=== PATIENT | male | born 1995 | race African-American/Black ===

== ENCOUNTER 2024-06-30 22:23 | Emergency (ER) | payer SELFPAY ==
[2024-06-30 22:42] VITALS: BP 122/89; PULSE 53; RESP 16; TEMP 36.7; O2SAT 99; BMI 30.5
[2024-06-30 22:49] VITALS: PULSE 61; O2SAT 98
[2024-06-30 23:00] VITALS: PULSE 58; O2SAT 97
--- NOTE | 2024-06-30 23:14 | CRLHL7_ITS ---
For Patients: As a result of the Cures Act, medical imaging exams and procedure reports are released immediately into your electronic medical record. You may view this report before your referring provider. If you have questions, please contact your health care provider. INDICATION: Chest pain TECHNIQUE: Chest radiograph 2 views COMPARISON: None FINDINGS: Mediastinum: The mediastinum is normal in appearance. The heart silhouette is normal in size and morphology. Lung: Both lungs are unremarkable in appearance. No sign of pleural effusion seen. No pneumothorax is identified. Bone and Soft tissue: Unremarkable for age. IMPRESSION: 1. No acute cardiopulmonary disease is seen. Dictated by: Isac Yarbrough MD @ 06/30/2024 23:37:37 (Electronically Signed)
[2024-06-30 23:15] VITALS: PULSE 70; O2SAT 97
--- NOTE | 2024-06-30 23:15 | ED.CHESTPAIN ---
HPI - Chest Pain General Date Seen: 06/30/24 Chief Complaint: Chest Pain Stated Complaint: stomach pain Time Seen by Provider: 06/30/24 22:31 Source: patient Mode of arrival: ambulatory Limitations: no limitations History of Present Illness HPI narrative: Patient is a 29-year-old male presenting to the emergency department for chest pain. He states chest pain started about an hour ago in his left lower chest. It is a sharp pain that occurs sun the was talking to his girlfriend on the phone. States he is very stressed out at this time. Pain radiated to his left arm and left jaw. Laying on his stomach made the pain worse or when he took a deep breath and got so severe he came in to be evaluated. By time I spoke to the patient he states the pain resolved about 10 minutes early any is currently symptom free. Denies any history of heart disease. No family history of heart disease that he is aware of. Has no history of blood clots. Denies any recent surgeries, history of malignancy, hemoptysis, lower extremity swelling. Denies ever having symptoms like this before. No other concerns noted. Related Data Home Medications ?Medication ?Instructions ?Recorded ?Confirmed No Known Home Medications 06/30/24 06/30/24 Allergies Allergy/AdvReac Type Severity Reaction Status Date / Time No Known Drug Allergies Allergy Verified 06/30/24 22:46 Review of Systems Status of ROS Reports: 10 or more systems reviewed and unremarkable except as noted in History and below [facility] Social History Smoking Status: Current every day smoker What tobacco products do you use: cigarettes Smoking packs per day: 1 Smoking cigarettes per day: 20.0 Years smoked: 10 Smoking pack-years: 10.00 Do you use any of these nicotine containing products: None Second hand tobacco smoke exposure: No How often do you have a drink containing alcohol: monthly or less AUDIT-C Alcohol total score: 1 Non-prescribed substance use: marijuana (any form) service: No Exam Narrative Exam Narrative: Const: Well-nourished, Well-developed, in no distress Eyes: PERRL, no conjunctival injection, and symmetrical lids HENT: Atraumatic external nose and ears. Moist mucous membranes. Neck: Symmetric, trachea midline, No thyromegaly. CVS: RRR, No murmurs or gallops. Peripheral pulses 2+ and equal in all extremities RESP: Unlabored respiratory effort. Clear to auscultation bilaterally. GI: Nontender/Nondistended, No rebound or guarding. MSK:Extremities w/o deformity, Normal Active ROM Skin: Warm, Dry. No rashes or lesions. Neuro: Normal Muscle tone, No focal neurological deficits. Psych: Awake, Alert, & Oriented x3. Appropriate mood and affect. Const Vital Signs, click to edit/add: Vital Signs - 24 hr 06/30/24 22:42 Temperature 98.1 F Pulse Rate [Pulse Oximeter] 53 L Respiratory Rate 16 Blood Pressure [Right Upper Arm] 122/89 Pulse Oximetry 99 Oxygen Delivery Method Room Air Course Vital Signs Vital signs: Initial Vital Signs Temperature 98.1 F 06/30/24 22:42 Temperature Source Temporal Artery Scan 06/30/24 22:42 Pulse Rate 53 L 06/30/24 22:42 Respiratory Rate 16 06/30/24 22:42 Blood Pressure 122/89 06/30/24 22:42 Blood Pressure Mean 100 06/30/24 22:42 Blood Pressure Position Supine 06/30/24 22:42 Pulse Oximetry 99 06/30/24 22:42 Oxygen Delivery Method Room Air 06/30/24 22:42 Vital Signs Temperature 98.1 F 06/30/24 22:42 Pulse Rate 53 L 06/30/24 22:42 Respiratory Rate 16 06/30/24 22:42 Blood Pressure 122/89 06/30/24 22:42 Pulse Oximetry 99 06/30/24 22:42 Oxygen Delivery Method Room Air 06/30/24 22:42 Temperature 98.1 F 06/30/24 22:42 Pulse Rate 64 07/01/24 01:39 Respiratory Rate 16 07/01/24 01:39 Blood Pressure 123/64 07/01/24 01:39 Pulse Oximetry 99 07/01/24 01:00 Oxygen Delivery Method Room Air 07/01/24 01:00 MDM - Chest Pain MDM Narrative Medical decision making narrative: Patient is a 29-year-old male presenting to emergency department for chest pain. The differential diagnosis of chest pain is broad and includes common etiologies such as musculoskeletal strain, GERD, pneumonia, etc. More serious etiologies considered include PE, coronary artery disease, pneumothorax, aortic dissection, aortic aneurysm. PERC score at this time is 0 and PE can be ruled out. Patient is stable an aortic dissection and aortic aneurysm seems unlikely. Will do chest x-ray to look for signs of pneumonia or pneumothorax. Will do troponin an EKG for signs of coronary artery disease. Considering the symptoms were short lived could be a costochondritis or precordial catch syndrome. Also possible pleuritis. Chest x-ray reviewed by myself and the radiologist showed no acute concerning abnormalities. Patient signed out to my colleague pending second troponin. Expected disposition is discharge at this time. Lab Data Labs: Lab Results 06/30/24 06/30/24 07/01/24 Range/Units 23:14 23:40 01:15 WBC 5.54 (4.50-11.00) K/uL RBC 5.00 (4.30-5.90) m/uL Hgb 14.9 (13.5-17.5) gm/dL Hct 44.3 (37.0-53.0) % MCV 89 (80-100) fL MCH 30 (26-34) pg MCHC 34 (32-36) gm/dL RDW Coeff of Omar 12.4 (11.5-15.5) % Plt Count 184 (140-440) K/uL Neut % (Auto) 42.7 (42.0-72.0) % Lymph % (Auto) 48.9 H (20-44) % Nash % (Auto) 7.0 (0.0-11.0) % Eos % (Auto) 0.7 (0.0-7.0) % Baso % (Auto) 0.5 (0.0-3.0) % Neut # (Auto) 2.36 (1.7-7.0) K/uL Lymph # (Auto) 2.70 (0.90-2.90) K/uL Nash # (Auto) 0.40 (0.00-0.90) K/UL Eos # (Auto) 0.04 (0.00-0.50) K/uL Baso # (Auto) 0.03 (0.00-0.30) K/uL Abs Immat Gran (auto) 0.01 (0.00-0.30) K/uL Imm/Tot Granulo (auto) 0.2 % Sodium 136 (135-149) mmol/L Potassium 3.8 (3.6-5.1) mmol/L Chloride 104 (96-114) mmol/L Carbon Dioxide 24 (20-32) mmol/L Anion Gap 8 (7-15) mEq/L BUN 15 (5-24) mg/dL Creatinine 0.9 (0.5-1.5) mg/dL Estimated Creat Clear 113.23 Estimated GFR 119 ml/min Glucose 94 (60-115) mg/dL Calcium 8.9 (8.4-10.6) mg/dL POC Troponin I 0.01 0.00 L (0.01-0.04) ng/ml Imaging Data Chest x-ray: Attestation: I have reviewed the pertinent imaging results. Radiologist's impression: 1. No acute cardiopulmonary disease is seen. Dictated by: Isac Yarbrough MD @ 06/30/2024 23:37:37 ECG Data Attestation: I personally reviewed and interpreted this ECG as follows: Prior ECG tracings: not available for review Interpretation: Sinus bradycardia rate 54 beats per minute, normal intervals, normal axis, no ST or T-wave abnormalities. Discharge Plan Discharge Clinical Impression: Atypical chest pain Patient Disposition: Home, Self-Care Condition: Stable Instructions: Chest Wall Pain (ED) Additional Instructions: I cannot say for certain what he chest pain was but no abnormalities were seen on your exam or lab work. Follow-up with your primary care provider. Return to emergency department for new or worsening symptoms. Activity Level: No Restrictions Discharge Diet: Regular Prescriptions: No Action No Known Home Medications Stand Alone Forms: [employer] Info Instructions
[2024-06-30 23:30] VITALS: PULSE 57; O2SAT 97
[2024-06-30 23:45] VITALS: PULSE 58; O2SAT 96
[2024-06-30 23:52] LABS: Basophils Absolute Auto 0.03 K/uL (0.00-0.30); Basophils Percent Auto 0.5 % (0.0-3.0); Eosinophils Absolute Auto 0.04 K/uL (0.00-0.50); Eosinophils Percent Auto 0.7 % (0.0-7.0); Hematocrit 44.3 % (37.0-53.0); Hemoglobin* 14.9 gm/dL (13.5-17.5); Immature Granulocytes Abs Auto 0.01 K/uL (0.00-0.30); Immature Granulocytes Pct Auto 0.2 %; Lymphocytes Percent Auto 48.9 % (20-44); Mean Corpuscular HGB Conc 34 gm/dL (32-36); Mean Corpuscular Hemoglobin 30 pg (26-34); Mean Corpuscular Volume 89 fL (80-100); Neutrophils Absolute Auto 2.36 K/uL (1.7-7.0); Neutrophils Percent Auto 42.7 % (42.0-72.0); Platelet Count* 184 K/uL (140-440); RDW Coefficient of Variation % 12.4 % (11.5-15.5); White Blood Count* 5.54 K/uL (4.50-11.00)
[2024-06-30 23:56] LABS: Troponin, Point-of-Care* 0.01 ng/ml (0.01-0.04)
[2024-06-30 23:57] LABS: Slide Review Reflex No
[2024-07-01] VITALS: PULSE 62; O2SAT 95
[2024-07-01 00:01] LABS: Chloride* 104 mmol/L (96-114); Potassium* 3.8 mmol/L (3.6-5.1); Sodium* 136 mmol/L (135-149)
[2024-07-01 00:04] LABS: Anion Gap 8 mEq/L (7-15); Blood Urea Nitrogen* 15 mg/dL (5-24); Carbon Dioxide* 24 mmol/L (20-32); Creatinine* 0.9 mg/dL (0.5-1.5); Est. Creatinine Clearance* 113.23; Estimated Glomerular Filt Rate 119 ml/min; Glucose* 94 mg/dL (60-115)
[2024-07-01 00:05] LABS: Calcium* 8.9 mg/dL (8.4-10.6)
[2024-07-01 00:15] VITALS: PULSE 66; O2SAT 94
[2024-07-01 00:30] VITALS: PULSE 67; O2SAT 94
[2024-07-01 01:00] VITALS: BP 110/68; PULSE 58; RESP 14; O2SAT 99
[2024-07-01 01:39] VITALS: BP 123/64; PULSE 64; RESP 16
== END 2024-07-01 01:40 | disposition home or self-care (01) ==
LOC: ED 23:59
PROVIDERS: Emergency Provider Student in an Organized Health Care Education/Training Program
DX: R07.9 Chest pain, unspecified (principal)
CPT/HCPCS: 36415; 71046; 80048; 84484; 85025; 93005; 99283; 99284